=== PATIENT | female | born 1940 | race African-American/Black ===

== ENCOUNTER 2019-01-11 17:10 | Emergency (ER) | payer MEDICARE ==
[~2019-01-11] VITALS: Ht 170.2 cm; Wt 81.6 kg
[2019-01-11 17:42] VITALS: BP_SYST 153
[2019-01-11 18:00] VITALS: BP_SYST 163
--- NOTE | 2019-01-11 19:16 | NUR ---
Placed in room 7 . Placed on cardiac care unit nurse, blood pressure machine and pulse oximeter. To gown for exam. Side rails up. Report given to linda RIVERA.
--- NOTE | 2019-01-11 19:16 | NUR ---
Pt BIB family members from home with c/o vaginal bleeding x 3 hours. Daughter states that while changing pt she noticed red blood to pad inside of pamper. Pt has a hx of UTI and received last dose of unknown antibiotic yesterday. Pt AAOx1, denies c/o pain or discomfort, no needs verbalized. Pt taking Eliquis for A-fib.
[2019-01-11 19:26] LABS: BASOPHILS # (AUTO) 0.1 K/uL (0.0-0.2); BASOPHILS % (AUTO) 0.4 % (0.0-2.0); EOSINOPHILS # (AUTO) 0.1 K/uL (0.0-0.4); HEMATOCRIT 54.1 % (36-48); HEMOGLOBIN 16.6 g/dL (12.0-16.0); LYMPHOCYTES # (AUTO) 1.1 K/uL (1.0-5.5); LYMPHOCYTES % (AUTO) 7.9 % (20.5-51.5); MEAN CORPUSCULAR HEMOGLOBIN 21 pg (27-31); MEAN CORPUSCULAR HGB CONC 31 % (32-36); MEAN CORPUSCULAR VOLUME 68 fL (79.0-98.0); MONOCYTES # (AUTO) 0.7 K/uL (0.0-1.0); MONOCYTES % (AUTO) 4.7 % (1.7-9.3); NEUTROPHILS # (AUTO) 12.2 K/uL (1.8-7.7); PLATELET COUNT (AUTO) 359 K/uL (130-430); RED BLOOD CELL COUNT(AUTO) 7.92 MIL/uL (4.2-6.2); RED CELL DISTRIBUTION WIDTH 24.4 % (9.0-15.0); WHITE BLOOD COUNT (AUTO) 14.2 K/uL (4.8-10.8)
--- NOTE | 2019-01-11 19:30 | NUR ---
Pt with BM. Pt cleaned. Thornton-tinged blood noted from vagina with wiping, pain with wiping. New linens applied. Pt tolerated fair.
[2019-01-11 19:34] LABS: ANION GAP 9 (5-15); CALCIUM 9.9 mg/dL (8.4-11.0); CHLORIDE 103 mmol/L (98-107); GLUCOSE 137 mg/dL (70-99); SODIUM SERUM 141 mmol/L (136-145); UREA NITROGEN, BLOOD 19 mg/dL (8-21)
[2019-01-11 19:41] LABS: ALANINE AMINOTRANSFERASE 13 U/L (12-78); ALBUMIN 3.3 g/dL (3.4-4.8); ASPARTATE AMINOTRANSFERASE 25 U/L (10-37); INR 1.1 (0.8-1.2); PROTHROMBIN TIME 11.4 SECS (9.5-12.5); TOTAL BILIRUBIN 1.4 mg/dL (0.0-1.0)
--- NOTE | 2019-01-11 19:45 | NUR ---
#14 Fr. In/Ot urinary cath performed. Approx 200 mL dark yellow and cloudy urine return. Specimen collected and sent to lab. Pt tolerated fair.
--- NOTE | 2019-01-11 20:40 | NUR ---
Dr. Nguyen at bedside to assess pt.
[2019-01-11 20:55] VITALS: BP_SYST 142
--- NOTE | 2019-01-11 20:55 | NUR ---
Family members and patient given written and verbal discharge instructions and verbalizes understanding. ER MD discussed with patient the results and treatment provided. Patient in stable condition. ID arm band removed. Rx of Cipro given. Patient educated on pain management and to follow up with PMD. Pain Scale 0/10. Opportunity for questions provided and answered. Medication side effect fact sheet provided.
== END 2019-01-11 20:55 | disposition home or self-care (01) ==
LOC: SED 17:10
DX: N93.8 Other specified abnormal uterine and vaginal bleeding (principal); N39.0 Urinary tract infection, site not specified; I11.0 Hypertensive heart disease with heart failure; I50.9 Heart failure, unspecified; F03.90 Unspecified dementia, unspecified severity, without behavioral disturbance, psychotic disturbance, mood disturbance, and anxiety; I48.91 Unspecified atrial fibrillation; Z85.038 Personal history of other malignant neoplasm of large intestine; Z88.8 Allergy status to other drugs, medicaments and biological substances
CPT/HCPCS: 36415; 76856-TC; 80053; 81002; 85025; 85610-TC; 85730-TC; 87086; 99284